=== PATIENT | male | born 1955 | race Caucasian/White ===

== ENCOUNTER 2024-11-03 18:44 | Emergency (ER) | payer MEDICARE, BC ==
[~2024-11-03] VITALS: Ht 185.4 cm; Wt 90.8 kg
[2024-11-03 18:45] VITALS: BP 176/85; PULSE 68; RESP 18; TEMP 98.4; O2SAT 98
[2024-11-03] MEDS ORDERED: CLIN1CAP70 PO (19:43)
[2024-11-03] MEDS ORDERED: ACET500T58 PO (19:43)
--- NOTE | 2024-11-03 19:50 | ED.PDOC ---
HPI Comments 69 year old male presents to ER with complaints of laceration to left leg x 1 day. Patient states a "stack of folding chairs" fell inside his garage and made impact with the lateral aspect of his left leg at 4 p.m. prior to arrival to ER and sustained laceration to this region at that time. He reports 1/10 pain localized to laceration of left leg and states he did clean the laceration with peroxide prior to arrival to ER. Notes he is up-to-date on his tetanus shot and presents to ER ambulatory on arrival, with steady gait, in no distress. Denies numbness/tingling, foreign body sensation or any further symptoms/complaints Chief Complaint: Laceration Time Seen by MD: 18:50 Primary Care Provider: UNKNOWN Reviewed Notes: Nurses Notes, Medications, Allergies Allergies: Coded Allergies: NO KNOWN ALLERGIES (Unverified , 11/03/24) Home Meds Active Scripts Acetaminophen (Acetaminophen) 500 Mg Tab, 500 MG PO Q4HPRN, #30 TAB 0 Refills Prov:JASON ZURITA 11/03/24 Clindamycin Hcl (Clindamycin Hcl) 300 Mg Cap, 1 CAP PO TID for 7 Days, #21 CAP 0 Refills Prov:JASON ZURITA 11/03/24 Information Source: Patient Mode of Arrival: Ambulatory Complexity: Simple Laceration Length (cm): 7 Skin Type: Linear Past Medical History PAST MEDICAL HISTORY: Denies Surgical History (Other): CARDIAC ABLATION Family History Family History: Unknown Social History Smoker: Non-Smoker Alcohol: Denies ETOH Use Drugs: Denies Drug Use Lives In: Home Constitutional: denies: chills, diaphoresis, fatigue, fever, malaise, sweats, weakness, others EENTM: denies: blurred vision, double vision, ear bleeding, ear discharge, ear drainage, ear pain, ear ringing, eye pain, eye redness, hearing loss, mouth pain, mouth swelling, nasal discharge, nose bleeding, nose congestion, nose pain, photophobia, tearing, throat pain, throat swelling, voice changes, others Respiratory: denies: cough, hemoptysis, orthopnea, SOB at rest, shortness of breath, SOB with excertion, stridor, wheezing, others Cardiovascular: denies: chest pain, dizzy spells, diaphoresis, Dyspnea on exertion, edema, irregular heart beat, left arm pain, lightheadedness, palpitations, PND, syncope, others Gastrointestinal: denies: abdomen distended, abdominal pain, blood streaked bowels, constipated, diarrhea, dysphagia, difficulty swallowing, hematemesis, melena, nausea, poor appetite, poor fluid intake, rectal bleeding, rectal pain, vomiting, others Genitourinary: denies: burning, dysuria, flank pain, frequency, hematuria, incontinence, penile discharge, penile sore, pain, testicle pain, testicle swelling, urgency, others Musculoskeletal: denies: back pain, gout, joint pain, joint swelling, muscle pain, muscle stiffness, neck pain, others Integumetry: reports: others (As stated in HPI) Allergic/Immunocompromised: denies: Difficulty Healing, Frequent Infections, Hives, Itching, others Hematologic/Lymphatic: denies: anemia, blood clots, easy bleeding, easy bruising, swollen glands, others Endocrine: denies: excessive hunger, excessive sweating, excessive thirst, excessive urination, flushing, intolerance to cold, intolerance to heat, unexplained weight gain, unexplained weight loss, others Psychiatric: denies: anxiety, bipolar disorder, depression, hopeless, panic disorder, schizophrenia, sleepless, suicidal, others Physical Exam General Appearance: No Apparent Distress HEENT: PERRL/EOMI Neck: Full Range of Motion, Non-Tender, Normal Respiratory: Chest Non-Tender, Lungs Clear, No Accessory Muscle Use, No Respiratory Distress, Normal Breath Sounds Cardiovascular: No Murmur, No Gallop, Regular Rate/Rhythm Breast Exam: Deferred Gastrointestinal: NOT DONE Genitalia: Deferred Pelvic: Deferred Rectal: Deferred Extremities: No calf tenderness, Normal capillary refill, Normal range of motion Neurologic: Alert, boarding specialist II-XII nml as Tested, No Motor Deficits, Normal Affect, Normal Mood, No Sensory Deficits Cerebellar Function: Normal Reflexes: Normal Skin: Dry, Warm Peripheral Pulses: 2+ dorsalis pedis (R), 2+ dorsalis pedis (L), 2+ Radial (R), 2+ Radial (L), 2+ Brachial (R), 2+ Brachial (L) Lymphatic: No Adenopathy Was a procedure done? Was a procedure done?: Yes Sedation Sedation?: No Laceration Repair : Location Left leg Length 7 cm Anesthetic: Lidocaine (1%), Without epi Laceration Repair Prep: Saline, Betadine, by Irrigation (heavily irrigated without any signs of foreign body) Laceration Repair Wound Comple: epidermis/dermis repair Laceration Repair: Number of sutures (7 placed - patient tolerated well without any complication), Size (3-0), Nylon, Simple, Non-adherent gauze Informed consent obtained: Yes Risks, benefits, and alternati: Yes Images 1 - 7 cm laceration noted to lateral aspect of left lower leg. Slight TTP/swelling/erythema localized to wound edges. No foreign body/bony tenderness/further skin changes noted. Steady gait noted. pulses intact Differential diagnosis Generic Laceration: Fracture, Retained Foriegn Body, Neurovascular Injury X-Ray, Labs, Meds, VS Vital Signs Date Time Temp Pulse Resp B/P (MAP) Pulse Ox O2 Delivery O2 Flow Rate FiO2 11/03/24 18:45 98.4 68 18 176/85 98 98.4 Current Medications Medications (Trade) Dose Ordered Sig/Irena Route Start Time Stop Time Status Last Admin Lidocaine HCl (Xylocaine 1%) ONCE ONCE IJ 11/03/24 20:00 11/03/24 20:01 DC 11/03/24 20:05 Wound cleaning performed at bedside Patient neurovascularly intact and reported improvement in symptoms prior to discharge Wound care/cleaning discussed and advised Advised to follow up in two days for wound check Advised to follow up in 10-14 days for removal of sutures Advised to follow up with PCP in 1-2 days Patient verbalized understanding and agreeable with current plan of care Advised to return to ER immediately if symptoms worsen Time of 1ST Reevaluation: 19:34 Reevaluation 1ST: N/A Patient Education/Counseling: Diagnosis, Treatment, Prognosis, Need For Follow Up Family Education/Counseling: No Family Present Departure 1 Departure Time of Disposition: 19:40 Impression: Primary Impression: Laceration of left leg Qualified Codes: S81.812A - Laceration without foreign body, left lower leg, initial encounter Disposition: HOME / SELF CARE / HOMELESS Condition: Stable e-Prescriptions Acetaminophen (Acetaminophen) 500 Mg Tab 500 MG PO Q4HPRN, #30 TAB 0 Refills Prov: JASON ZURITA 11/03/24 Clindamycin Hcl (Clindamycin Hcl) 300 Mg Cap 1 CAP PO TID for 7 Days, #21 CAP 0 Refills Prov: JASON ZURITA 11/03/24 Discharged With: Self Critical Care Note Critical Care Time?: No Stability Stability form required: No Heart Score Heart Score: Heart Score Response (Comments) Value History N/A 0 EKG N/A 0 Age N/A 0 Risk Factors N/A 0 Troponin N/A 0 Total 0 JASON ZURITA Nov 03, 2024 19:49
[2024-11-03] MEDS: LIDOCAINE 1% HCL (LOCAL ANESTH.) INJ 20ML MDV IJ ONE (20:05)
== END 2024-11-03 20:20 | disposition home or self-care (01) ==
LOC: ER 18:47
DX: S81.812A Laceration without foreign body, left lower leg, initial encounter (principal); Z79.899 Other long term (current) drug therapy; W19.XXXA Unspecified fall, initial encounter; Y93.89 Activity, other specified; Y92.89 Other specified places as the place of occurrence of the external cause; Y99.8 Other external cause status
CPT/HCPCS: 12002; 99283; J2003